=== PATIENT | male | born 1960 | race Caucasian/White ===

== ENCOUNTER 2018-07-24 09:29 | Observation (INO) | payer BC ==
[2018-07-24] MEDS ORDERED: ASPIRIN 81 MG TABLET, CHEWABLE PO ONE (10:17)
--- NOTE | 2018-07-24 10:18 | ER Document Report ---
ED Medical Screen (RME) - General Chief Complaint: Chest Tightness Stated Complaint: CHEST TIGHTNESS Time Seen by Provider: 07/24/18 10:08 Notes: 57-year-old male to the emergency department with a one-week history of chest pain. Went to his regular doctor last week and had labs done. Does not know the results. Was having chest pain. Was told everything checked out normal. Continues to have tightness and pain in the central portion of the chest. Mild cough. No fever, chills, sweats. Patient did have a brother that of a heart attack at the age of 62. Does not smoke. Last cigarette was 20 years ago. I have greeted and performed a rapid initial assessment of this patient. A comprehensive ED assessment and evaluation of the patient, analysis of test results and completion of the medical decision making process will be conducted by additional ED providers. TRAVEL OUTSIDE OF THE [place] IN LAST 30 DAYS: No - Related Data Allergies/Adverse Reactions: No Known Allergies Allergy (Verified 07/24/18 09:30) Past Medical History - Social History Chew tobacco use (# tins/day): No Frequency of alcohol use: Occasional Drug Abuse: None - Past Medical History Cardiac Medical History: Reports: Hx Hypertension Renal/ Medical History: Denies: Hx Peritoneal Dialysis Past Surgical History: Reports: Hx Orthopedic Surgery - back Review of Systems - Review of Systems Notes: Review of systems positive for the following: Chest pain Physical Exam - Vital signs Vitals: Temp Pulse Resp BP Pulse Ox 98.7 F 82 19 144/92 H 95 07/24/18 09:46 07/24/18 09:46 07/24/18 09:46 07/24/18 09:46 07/24/18 09:46 Interpretation: Hypertensive - Respiratory Respiratory status: No respiratory distress Chest status: Nontender Breath sounds: Normal Chest palpation: Normal - Cardiovascular Rhythm: Regular Heart sounds: Normal auscultation Murmur: No Course - Vital Signs Vital signs: Temp Pulse Resp BP Pulse Ox 98.7 F 82 19 144/92 H 95 07/24/18 09:46 07/24/18 09:46 07/24/18 09:46 07/24/18 09:46 07/24/18 09:46 Doctor's Discharge - Discharge Referrals: TORREY BARON MD [Primary Care Provider] - Follow up as needed
[2018-07-24 10:46] LABS: ABSOLUTE LYMPHOCYTES (AUTO) 1.3 10^3/uL (0.5-4.7); ABSOLUTE MONOCYTES (AUTO) 1.2 10^3/uL (0.1-1.4); ABSOLUTE NEUT (AUTO) 10.2 10^3/uL (1.7-8.2); BASOPHILS % (AUTO) 0.4 % (0-2); EOSINOPHILS % (AUTO) 0.2 % (0-6); HEMOGLOBIN 16.9 g/dL (13.5-17.0); LYMPHOCYTES % (AUTO) 10.2 % (13-45); MEAN CORPUSCULAR HEMOGLOBIN 31.7 pg (27.0-33.4); MEAN CORPUSCULAR HGB CONC 34.4 g/dL (32.0-36.0); MEAN CORPUSCULAR VOLUME 92 fl (80-97); MONOCYTES % (AUTO) 9.4 % (3-13); PLATELET COUNT 265 10^3/uL (150-450); RED BLOOD COUNT 5.32 10^6/uL (4.35-5.55); RED CELL DISTRIBUTION WIDTH 13.1 % (11.5-14.0); SEGMENTED NEUTROPHILS % (AUTO) 79.8 % (42-78); TOTAL CELLS COUNTED % (AUTO) 100 %; WHITE BLOOD COUNT 12.7 10^3/uL (4.0-10.5)
--- NOTE | 2018-07-24 11:06 | RADIOLOGY REPORT (SQ) ---
EXAM DESCRIPTION: CHEST 2 VIEWS COMPLETED DATE/TIME: 07/24/2018 10:53 am REASON FOR STUDY: chest pain COMPARISON: None. NUMBER OF VIEWS: Two view. TECHNIQUE: Frontal and lateral radiographic views of the chest acquired. LIMITATIONS: None. FINDINGS: LUNGS AND PLEURA: No opacities, masses or pneumothorax. No pleural effusion. MEDIASTINUM AND HILAR STRUCTURES: No masses. No contour abnormalities. HEART AND VASCULAR STRUCTURES: Heart enlarged without failure. Aorta normal for age. BONES: No acute findings. HARDWARE: None in the chest. OTHER: No other significant finding. IMPRESSION: CARDIAC ENLARGEMENT WITHOUT FAILURE. TECHNICAL DOCUMENTATION: JOB ID: [id number] [employer]- All Rights Reserved Reading location - IP/workstation name: [email or web address]
[2018-07-24 11:11] LABS: ALANINE AMINOTRANSFERASE 60 U/L (21-72); ALBUMIN 4.7 g/dL (3.5-5.0); ALKALINE PHOSPHATASE 92 U/L (38-126); ANION GAP 10 (5-19); ASPARTATE AMINO TRANSFERASE 33 U/L (17-59); BILIRUBIN,DIRECT 0.3 mg/dL (0.0-0.4); BILIRUBIN,TOTAL 1.2 mg/dL (0.2-1.3); BLOOD UREA NITROGEN 15 mg/dL (7-20); CALCIUM 9.7 mg/dL (8.4-10.2); CARBON DIOXIDE 26 mmol/L (22-30); CHLORIDE 104 mmol/L (98-107); CREATINE KINASE 134 U/L (55-170); GLUCOSE 112 mg/dL (75-110); POTASSIUM 4.6 mmol/L (3.6-5.0); SODIUM 139.6 mmol/L (137-145); TOTAL PROTEIN 7.4 g/dL (6.3-8.2)
[2018-07-24 11:23] LABS: CREATINE KINASE MB 1.17 ng/mL (<4.55); TROPONIN I < 0.012 ng/mL
--- NOTE | 2018-07-24 11:50 | ER Document Report ---
ED Cardiac - General Chief Complaint: Chest Tightness Stated Complaint: CHEST TIGHTNESS Time Seen by Provider: 07/24/18 10:08 Notes: Patient says that he was awakened around 1 AM this morning with a "tightness" and "pressure" in the mid anterior substernal region. He is never had this before. He does often awaken around 1 AM, however. He says the pain is worsened by taking deep breaths. It is still present at this time. Patient says he does not need anything for the pain. Does not have any swelling of either leg or have any history of blood clots. No history of any heart disease. He did have an upper respiratory infection a couple weeks ago, but no symptoms of that problem now. Denies shortness of breath or difficulty breathing. No history of asthma or COPD. Non-smoker. No recent fevers. Patient has a history of hypertension and cholesterol for which he is on medications. No history of any heart conditions. TRAVEL OUTSIDE OF THE [place] IN LAST 30 DAYS: No - Related Data Allergies/Adverse Reactions: No Known Allergies Allergy (Verified 07/24/18 09:30) Past Medical History - Social History Smoking Status: Former Smoker Chew tobacco use (# tins/day): No Frequency of alcohol use: Occasional Drug Abuse: None Family History: Reviewed & Not Pertinent Patient has suicidal ideation: No Patient has homicidal ideation: No - Past Medical History Cardiac Medical History: Reports: Hx Hypercholesterolemia, Hx Hypertension Denies: Hx Coronary Artery Disease Endocrine Medical History: Denies: Hx Diabetes Mellitus Type 1, Hx Diabetes Mellitus Type 2 Past Surgical History: Reports: Hx Orthopedic Surgery - back Review of Systems - Review of Systems Notes: REVIEW OF SYSTEMS: CONSTITUTIONAL : Denies fever. EENT: Denies eye, ear, nose or mouth or throat pain or other symptoms. CARDIOVASCULAR: See HPI. RESPIRATORY: Denies cough, chest congestion, or shortness of breath currently, although did have an upper respiratory infection a couple weeks ago. GASTROINTESTINAL: Denies abdominal pain or nausea, vomiting, or diarrhea. GENITOURINARY: Denies difficulty or painful urinating, urinary frequency, blood in urine. MUSCULOSKELETAL: Denies back or neck pain. Denies joint pain or swelling. SKIN: Denies rash or skin lesions. NEUROLOGICAL: Denies LOC or altered mental status. Denies headache. Denies sensory loss or motor deficits. ALL OTHER SYSTEMS REVIEWED AND NEGATIVE. Physical Exam - Vital signs Vitals: Temp Pulse Resp BP Pulse Ox 98.7 F 82 19 144/92 H 95 07/24/18 09:46 07/24/18 09:46 07/24/18 09:46 07/24/18 09:46 07/24/18 09:46 Interpretation: Normal Notes: PHYSICAL EXAMINATION: GENERAL: Well-appearing, in no acute distress. HEAD: Atraumatic, normocephalic. EYES: Pupils equal round and reactive to light, extraocular movements intact. ENT: oropharynx clear without exudates. Moist mucous membranes. NECK: Normal range of motion, supple. LUNGS: Breath sounds clear and equal bilaterally. HEART: Regular rate and rhythm without murmurs. No rubs heard. ABDOMEN: Soft, nontender. No guarding or rebound. No masses. BACK: No tenderness throughout entire back. EXTREMITIES: Normal range of motion without pain. No swelling. Negative Homans bilaterally. NEUROLOGICAL: Normal speech, normal gait. Normal sensory, motor, and reflex exams. Awake, alert, and oriented x3. Cranial nerves normal. PSYCH: Normal mood, normal affect. SKIN: Warm, dry, no rashes. Course - Re-evaluation Re-evalutation: 07/24/18 11:49 Patient's workup at this point is essentially negative except for the cardiac enlargement on his chest x-ray. I am going to get a CTA of his chest. 07/24/18 12:51 Patient CTA is negative. Only finding is of the cardiomegaly mentioned on his chest x-ray. Patient states still having some of that pressure feeling of his chest someone to put a patch of nitroglycerin on. We will contact the hospitalist for admission for further evaluation. - Vital Signs Vital signs: Temp Pulse Resp BP Pulse Ox 98.7 F 82 23 H 121/95 H 93 07/24/18 09:46 07/24/18 09:46 07/24/18 13:01 07/24/18 13:00 07/24/18 13:01 - Laboratory Result Diagrams: 07/24/18 10:20 07/24/18 10:20 Laboratory results interpreted by me: 07/24/18 07/24/18 10:20 10:20 WBC 12.7 H Seg Neutrophils % 79.8 H Lymphocytes % 10.2 L Absolute Neutrophils 10.2 H Glucose 112 H - Diagnostic Test Radiology reviewed: Image reviewed, Reports reviewed - Chest x-ray shows cardiac enlargement but no failure. - EKG Interpretation by Me EKG shows normal: Sinus rhythm Rate: Normal Rhythm: NSR Additional EKG results interpreted by me: 07/24/18 11:49 EKG is normal. Discharge - Discharge Clinical Impression: Chest pain, Cardiomegaly Condition: Stable Disposition: ADMITTED OBSERVATION Admitting Provider: Hospitalist Unit Admitted: Telemetry Referrals: TORREY BARON MD [ACTIVE STAFF] - Follow up as needed
--- NOTE | 2018-07-24 12:25 | RADIOLOGY REPORT (SQ) ---
EXAM DESCRIPTION: CTA CHEST COMPLETED DATE/TIME: 07/24/2018 12:12 pm REASON FOR STUDY: Chest pain, cardiac enlargement on chest x-ray COMPARISON: Same day chest radiograph TECHNIQUE: CT scan of the chest performed using helical scanning technique with dynamic intravenous contrast injection. Images reviewed with lung, soft tissue and bone windows. Reconstructed coronal and sagittal MPR images reviewed. Additional 3 dimensional post-processing performed to develop Maximal Intensity Projection images (IN P). All images stored on PACS. All CT scanners at this facility use dose modulation, iterative reconstruction, and/or weight based d osing when appropriate to reduce radiation dose to as low as reasonably achievable (ALARA). [facility]: Dose Right [facility]: CareDose [facility]: Dose Right [facility]: Teradose 4D [facility]: Buyt.In CONTRAST TYPE AND DOSE: contrast/concentration: Isovue 350.00 mg/ml; Total Contrast Delivered: 85.0 ml; Total Saline Delivered: 90.0 ml Contrast bolus optimized for the pulmonary arteries. Not diagnostic for the aorta. RENAL FUNCTION: GFR > 60. RADIATION DOSE: CT Rad equipment meets quality standard of care and radiation dose reduction techniq ues were employed. CTDIvol: 19.3 - 19.8 mGy. DLP: 732 mGy-cm. . LIMITATIONS: None. FINDINGS: LUNGS AND PLEURA: No masses, infiltrates, or pneumothorax. No pleural effusions or pleura l calcifications. Minimal bibasilar atelectasis and/or scarring. AORTA AND GREAT VESSELS: No aneurysm. Contrast bolus not optimized for the aorta. HEART: No pericardial effusion. Scattered coronary artery calcifications. Cardiomegaly. PULMONARY ARTERIES: No emboli visualized in the main pulmonary arteries or the segmental branches. HILAR AND MEDIASTINAL STRUCTURES: No identified masses or abnormal nodes. HARDWARE: None in the chest. UPPER ABDOMEN: Hepatic steatosis. THYROID AND OTHER SOFT TISSUES: No masses. No adenopathy. BONES: No acute or significant finding. 3D MIPS: Confirm above findings. OTHER: No other significant finding. IMPRESSION: 1. Negative examination for pulmonary embolism. 2. Cardiomegaly. COMMENT: Quality ID # [id number]: Final reports with documentation of one or more dose reduction techniques (e.g., Automated exposure control, adjustment of the mA and/or kV according to patient size, use of iterative reconstruction technique) TECHNICAL DOCUMENTATION: JOB ID: [id number]- All Rights Reserved Reading location - IP/workstation name: [email or web address]
[2018-07-24] MEDS ORDERED: NITROGLYCERIN 5 MG (0.2 MG/HR) PATCH.TD24 TD ONE (12:50)
[2018-07-24] MEDS ORDERED: ONDANSETRON HCL INJ/PF 4 MG/2 ML SDV IV PRN (13:49)
--- NOTE | 2018-07-24 14:03 | PDOC H&P ---
History of Present Illness Admission Date/PCP: 07/24/18 13:37 DIMAS GUTIERREZ MD History of Present Illness: ANGIE SCHRADER is a 57 year old male patient presents with chief compla int of chest pain. Patient reports this he has been in usual baseline state of health up until 1 AM yesterday when he woke up with chest pain described as pressure-like localized to the left precordium and it is nonradiating. Patient reports this the chest pain is precipitated by deep breathing. No history of similar attack in the past. No family history of heart disease. Patient denied any chills, fever, cough, palpitation or diaphoresis. No nausea, vomiting, abdominal pain or diarrhea. No urinary complaints. His first set of cardiac enzymes negative and no EKG changes. Past Medical History Cardiac Medical History: Reports: Hyperlipidema, Hypertension Denies: Coronary Artery Disease Endocrine Medical History: Denies: Diabetes Mellitus Type 1, Diabetes Mellitus Type 2 Past Surgical History Past Surgical History: Reports: Orthopedic Surgery - back Social History Smoking Status: Former Smoker - Advance Directive Resuscitation Status: Full Code Family History Family History: Reviewed & Not Pertinent, Hypertension Parental Family History Reviewed: Yes Children Family History Reviewed: Yes Sibling(s) Family History Reviewed.: Yes Medication/Allergy Allergies/Adverse Reactions: No Known Allergies Allergy (Verified 07/24/18 09:30) Review of Systems Constitutional: PRESENT: as per HPI Eyes: PRESENT: as per HPI Cardiovascular: PRESENT: as per HPI Respiratory: PRESENT: as per HPI Gastrointestinal: PRESENT: as per HPI Musculoskeletal: PRESENT: as per HPI Neurological: PRESENT: as per HPI Psychiatric: PRESENT: as per HPI Physical Exam Vital Signs: Temp Pulse Resp BP Pulse Ox 98.7 F 82 23 H 121/95 H 93 07/24/18 09:46 07/24/18 09:46 07/24/18 13:01 07/24/18 13:00 07/24/18 13:01 Intake & Output 07/23/18 07/24/18 07/25/18 06:59 06:59 06:59 Weight 101 kg General appearance: PRESENT: no acute distress Head exam: PRESENT: atraumatic Eye exam: PRESENT: conjunctiva pink Mouth exam: PRESENT: moist Neck exam: ABSENT: carotid bruit, JVD, lymphadenopathy, thyromegaly Respiratory exam: PRESENT: clear to auscultation orly. ABSENT: rales, rhonchi, wheezes Cardiovascular exam: PRESENT: RRR. ABSENT: diastolic murmur, rubs, systolic murmur GI/Abdominal exam: PRESENT: normal bowel sounds, soft. ABSENT: distended, guarding, mass, organolmegaly, rebound, tenderness Extremities exam: PRESENT: full ROM. ABSENT: calf tenderness, clubbing, pedal edema Neurological exam: PRESENT: alert, awake, oriented to time, oriented to situation Psychiatric exam: PRESENT: normal mood Results Laboratory Results: 07/24/18 10:20 07/24/18 10:20 07/24/18 07/24/18 10:20 10:20 WBC 12.7 H RBC 5.32 Hgb 16.9 Hct 49.0 MCV 92 MCH 31.7 MCHC 34.4 RDW 13.1 Plt Count 265 Seg Neutrophils % 79.8 H Lymphocytes % 10.2 L Monocytes % 9.4 Eosinophils % 0.2 Basophils % 0.4 Absolute Neutrophils 10.2 H Absolute Lymphocytes 1.3 Absolute Monocytes 1.2 Absolute Eosinophils 0.0 Absolute Basophils 0.0 Sodium 139.6 Potassium 4.6 Chloride 104 Carbon Dioxide 26 Anion Gap 10 BUN 15 Creatinine 1.10 Est GFR ( Amer) > 60 Est GFR (Non-Af Amer) > 60 Glucose 112 H Calcium 9.7 Total Bilirubin 1.2 AST 33 ALT 60 Alkaline Phosphatase 92 Total Protein 7.4 Albumin 4.7 07/24/18 07/24/18 10:20 10:20 Creatine Kinase 134 CK-MB (CK-2) 1.17 Troponin I < 0.012 Impressions: Chest X-Ray 07/24/18 10:17 IMPRESSION: CARDIAC ENLARGEMENT WITHOUT FAILURE. Chest/Abdomen CTA 07/24/18 11:43 IMPRESSION: 1. Negative examination for pulmonary embolism. 2. Cardiomegaly. Assessment & Plan - Diagnosis (1) Chest pain Qualifiers: Chest pain type: other chest pain Qualified Code(s): R07.89 - Other chest pain; R07.8 - Other chest pain Is this a current diagnosis for this admission?: Yes Plan: Since patient has risk factors for ACS I think it is appropriate to admit him for observation. Trend troponin, repeat EKG and cardiac stress test in the morning. I ordered also echocardiogram since the chest x-ray read as cardiomegaly. (2) Hypertension Qualifiers: Hypertension type: essential hypertension Qualified Code(s): I10 - Essential (primary) hypertension Is this a current diagnosis for this admission?: Yes Plan: Continue his home medication (3) Hyperlipidemia Qualifiers: Hyperlipidemia type: unspecified Qualified Code(s): E78.5 - Hyperlipidemia, unspecified Is this a current diagnosis for this admission?: Yes Plan: Continue home medication (4) Obesity (BMI 30-39.9) Is this a current diagnosis for this admission?: Yes Plan: Patient advised to do lifestyle modification.
[2018-07-24] MEDS: ENOXAPARIN SODIUM INJ 40 MG/0.4 ML DISP.SYRIN SUBCUT SCH (14:35)
[2018-07-24] MEDS: OXYCODONE-ACETAMINOPHEN 5-325 MG TABLET PO PRN ×2 (17:16→23:34)
--- NOTE | 2018-07-24 19:33 | EKG REPORT ---
SEVERITY:- NORMAL ECG - SINUS RHYTHM : Confirmed by: Kari Jones 24-Jul-2018 19:32:37
[2018-07-24] MEDS: FAMOTIDINE 20 MG TABLET PO SCH (22:17)
[2018-07-25 04:09] VITALS: BP 112/61
[2018-07-25] MEDS: ENOXAPARIN SODIUM INJ 40 MG/0.4 ML DISP.SYRIN SUBCUT SCH (11:10)
[2018-07-25] MEDS: FAMOTIDINE 20 MG TABLET PO SCH (11:11)
[2018-07-25] MEDS ORDERED: REGADENOSON INJ 0.4 MG/5 ML DISP.SYRIN IV ONE (13:21)
[2018-07-25] MEDS: OXYCODONE-ACETAMINOPHEN 5-325 MG TABLET PO PRN (15:38)
[2018-07-25] MEDS ORDERED: ACETAMINOPHEN 325 MG TABLET PO PRN (16:15)
--- NOTE | 2018-07-25 16:52 | PDOC DISCHARGE SUMMARY ---
General - Admit/Disc Date/PCP Admission Date/Primary Care Provider: 07/24/18 13:37 DIMAS GUTIERREZ MD Discharge Date: 07/25/18 - Discharge Diagnosis (1) Chest pain Is this a current diagnosis for this admission?: Yes (2) Hypertension Is this a current diagnosis for this admission?: Yes (3) Hyperlipidemia Is this a current diagnosis for this admission?: Yes (4) Obesity (BMI 30-39.9) Is this a current diagnosis for this admission?: Yes - Additional Information Resuscitation Status: Full Code Discharge Diet: As Tolerated Discharge Activity: Activity As Tolerated, Balance Activity w/Rest Home Medications: Atorvastatin Calcium [Lipitor 20 mg Tablet] 20 mg PO QHS 07/24/18 Enalapril Maleate [Vasotec 10 mg Tablet] 10 mg PO DAILY 07/24/18 Omeprazole 20 mg PO DAILY 07/24/18 History of Present Illness History of Present Illness: ANGIE SCHRADER is a 57 year old male patient presents with chief complaint of chest pain. Patient reports this he has been in usual baseline state of health up until 1 AM yesterday when he woke up with chest pain described as pressure-like localized to the left precordium and it is nonradiating. Patient reports this the chest pain is precipitated by deep breathing. No history of similar attack in the past. No family history of heart disease. Patient denied any chills, fever, cough, palpitation or diaphoresis. No nausea, vomiting, abdominal pain or diarrhea. No urinary complaints. His first set of cardiac enzymes negative and no EKG changes. Hospital Course Hospital Course: This is a 57 years old male patient with past medical history of hypertension hyperlipidemia and obesity admitted for chest pain rule out acute coronary syndrome. Overnight patient remained chest pain-free. His troponin and EKG are unrevealing and this morning he undergone cardiac stress test and the stress test reportedly negative. Patient advised her to do lifestyle modification. Physical Exam Vital Signs: Temp Pulse Resp BP Pulse Ox 98.3 F 82 15 112/61 98 07/25/18 15:09 07/25/18 15:09 07/25/18 15:09 07/25/18 15:09 07/25/18 15:09 Intake & Output 07/24/18 07/25/18 07/26/18 06:59 06:59 06:59 Intake Total 500 384 Balance 500 384 Weight 99.8 kg General appearance: PRESENT: no acute distress, well-developed, well-nourished Head exam: PRESENT: atraumatic, normocephalic Eye exam: PRESENT: conjunctiva pink, EOMI, PERRLA. ABSENT: scleral icterus Ear exam: PRESENT: normal external ear exam Mouth exam: PRESENT: moist, tongue midline Neck exam: ABSENT: carotid bruit, JVD, lymphadenopathy, thyromegaly Respiratory exam: PRESENT: clear to auscultation orly. ABSENT: rales, rhonchi, wheezes Cardiovascular exam: PRESENT: RRR. ABSENT: diastolic murmur, rubs, systolic murmur Pulses: PRESENT: normal dorsalis pedis pul Vascular exam: PRESENT: normal capillary refill GI/Abdominal exam: PRESENT: normal bowel sounds, soft. ABSENT: distended, guar ding, mass, organolmegaly, rebound, tenderness Rectal exam: PRESENT: deferred Extremities exam: PRESENT: full ROM. ABSENT: calf tenderness, clubbing, pedal edema Neurological exam: PRESENT: alert, awake, oriented to person, oriented to place, oriented to time, oriented to situation, CN II-XII grossly intact. ABSENT: motor sensory deficit Psychiatric exam: PRESENT: appropriate affect, normal mood. ABSENT: homicidal ideation, suicidal ideation Skin exam: PRESENT: dry, intact, warm. ABSENT: cyanosis, rash Results Laboratory Results: 07/24/18 10:20 07/24/18 10:20 07/24/18 07/24/18 07/24/18 10:20 10:20 14:37 Creatine Kinase 134 CK-MB (CK-2) 1.17 Troponin I < 0.012 < 0.012 07/25/18 05:54 Creatine Kinase CK-MB (CK-2) Troponin I < 0.012 Impressions: Chest X-Ray 07/24/18 10:17 IMPRESSION: CARDIAC ENLARGEMENT WITHOUT FAILURE. Chest/Abdomen CTA 07/24/18 11:43 IMPRESSION: 1. Negative examination for pulmonary embolism. 2. Cardiomegaly. Qualifiers - * PATIENT BEING DISCHARGED WITH ANY OF THE FOLLOWING DIAGNOSIS: No
--- NOTE | 2018-07-26 23:52 | XCELERA REPORT ---
[address] [address] Transthoracic Echocardiogram Report Name: ANGIE SCHRADER Age: 57 yrs Gender: Male : 1960 Patient Status: Inpatient Patient Location: [place] [address]^A Study Date: 07/24/2018 05:26 PM Height: 69 in Weight: 222 lb BSA: 2.2 m2 Procedure: A two-dimensional transthoracic echocardiogram with color flow and Doppler was performed. Study Quality: Poor. The study was technically difficult with many images being suboptimal in quality. Images were not obtained from all of the standard acoustic windows due to the limited scope of the study. Reason For Study: Cardiomegaly History: Cardiomegaly. Ordering Physician: HENRIQUE MCCALLUM Performed By: Suzette Garrett Interpretation Summary The left ventricle is normal in size. There is normal left ventricular wall thickness. No True apical 2 chamber views obtained.Hence cannot comment on the apical anterior , the basal anterior, the basal inferior and apical inferior combs.The mid anterior , the mid inferior and the rest of the LV combs contract normally. .Normal LVEF is normal and is greater than 60% in the limited views. Doppler measurements suggest impaired left ventricular relaxation, which is associated with grade I/IV or mild diastolic dysfunction There is no thrombus. The right ventricle is not well visualized secondary to technical limitations Right atrium not well visualized secondary to technical limitations The left atrial size is normal. There is no evidence of mitral valve prolapse. There is no vegetation seen on the mitral valve. There is no mitral valve stenosis. There is no mitral regurgitation noted. There is no aortic valve stenosis There is no LVOT obstruction. No aortic regurgitation is present. The tricuspid valve is not well visualized secondary to technical limitations The aortic root is not well visualized. There is no pericardial effusion. MMode/2D Measurements & Calculations RVDd: 2.2 cm LVIDd: 4.6 cm FS: 33.4 % Ao root diam: 3.1 cm IVSd: 1.0 cm LVIDs: 3.1 cm EDV(Teich): 97.7 ml Ao root area: 7.3 cm2 LVPWd: 1.0 cm ESV(Teich): 37.0 ml LA dimension: 2.7 cm EF(Teich): 62.1 % Doppler Measurements & Calculations MV E max radha: MV P1/2t max radha: Ao V2 max: LV V1 max P.3 cm/sec 56.3 cm/sec 99.0 cm/sec 3.2 mmHg MV A max radha: MV P1/2t: 71.0 msec Ao max P.9 mmHg LV V1 max: 65.2 cm/sec MVA(P1/2t): 3.1 cm2 89.3 cm/sec MV E/A: 0.85 MV dec slope: 232.4 cm/sec2 MV dec time: 0.22 sec PA V2 max: TR max radha: MV P1/2t-pr_phl: 97.7 cm/sec 190.0 cm/sec 71.0 msec PA max P.8 mmHgTR max P.4 mmHg Left Ventricle The left ventricle is normal in size. There is normal left ventricular wall thickness. No True apical 2 chamber views obtained.Hence cannot comment on the apical anterior , the basal anterior, the basal inferior and apical inferior combs.The mid anterior , the mid inferior and the rest of the LV combs contract normally. .Normal LVEF is normal and is greater than 60% in the limited views. Doppler measurements suggest impaired left ventricular relaxation, which is associated with grade I/IV or mild diastolic dysfunction. There is no thrombus. Right Ventricle The right ventricle is not well visualized secondary to technical limitations. Atria Right atrium not well visualized secondary to technical limitations. The left atrial size is normal. Mitral Valve There is no evidence of mitral valve prolapse. There is no vegetation seen on the mitral valve. There is no mitral valve stenosis. There is no mitral regurgitation noted. Aortic Valve There is no aortic valve stenosis. There is no LVOT obstruction. No aortic regurgitation is present. Tricuspid Valve The tricuspid valve is not well visualized secondary to technical limitations. Great Vessels The aortic root is not well visualized. Effusions There is no pericardial effusion. : HENRIQUE MCCALLUM > Angelita Watters
--- NOTE | 2018-07-27 23:35 | DRAGON STRESS TEST REPORT ---
Intravenous Lexiscan Cardiolite stress test using single photon emmision computerized tomography. Date of procedure: 07/25/2018. Ordering Provider: Dr. Godinez. Patient's status: Inpatient. Indication: Chest pain. Coronary risk factors: Age, hypertension, and dyslipidemia. Resting EKG: Sinus Rhythm. Within Normal Limits. Stress EKG: No changes of ischemia. The patient had no chest pain or discomfort, and there were no arrhythmias seen. Reason for termination: Protocol. Conclusions: Normal EKG and hemodynamic response to IV Lexiscan. Nuclear data: At rest the patient was given 15.08 millicuries of technetium 99m sestamibi injected intravenously. As per protocol rest non gated SPECT images were obtained. Subsequently the patient was given intravenous Lexiscan at a dose of 0.4 mg in 5 mL intravenously, followed by flush with normal saline. Subsequently the stress dose of 47.6 millicuries of technetium 99m sestamibi was injected intravenously. As per protocol stress gated images were obtained. Nuclear interpretation: Review of images showed that all segments of the myocardium had normal perfusion at rest, and normal perfusion post stress with IV Lexiscan. All segments of the myocardium had normal motion, contraction, and thickening by gated study. T. I D. ratio was normal at 0.95. There is no transient ischemic dilatation of the left ventricle. Computer read rest, and stress left ventricular ejection fraction were 71 %, and 68 %, respectively. Conclusion: 1. There is no scintigraphic evidence of Lexiscan induced myocardial ischemia. 2. There is no scintigraphic evidence of myocardial infarction/scar. Recommendations: Aggressive risk factor modification, and treating the underlying co- morbidities. MTDD
== END 2018-07-25 17:45 | disposition home or self-care (01) ==
LOC: ER 09:29 → EH 13:37 → 5 19:59
PROVIDERS: ADMIT Internal Medicine; ATTEND Internal Medicine
DX: R07.89 Other chest pain (principal); I10 Essential (primary) hypertension; E78.5 Hyperlipidemia, unspecified; E66.9 Obesity, unspecified; R05 Cough; Z68.39 Body mass index [BMI] 39.0-39.9, adult; Z79.899 Other long term (current) drug therapy; Z87.891 Personal history of nicotine dependence; Z87.09 Personal history of other diseases of the respiratory system; Z82.49 Family history of ischemic heart disease and other diseases of the circulatory system
CPT/HCPCS: 93005; 99285; 96372; 36415 ×2; 82553; 82550; 85025; 80053; 84484 ×2; 83036; 93306; 93017; 71046; 78452; 71275; 93010; G0378 ×3; A9500; J2785; J1650; J3490 ×3; Q9969